=== PATIENT | female | born 1975 | race Caucasian/White ===

== ENCOUNTER 2020-09-09 16:47 | Emergency (ER) | payer OTHER | END 2020-09-09 20:12 | disposition home or self-care (01) | LOC: ED 16:47 | DX: S06.0X9A Concussion with loss of consciousness of unspecified duration, initial encounter (principal); G43.909 Migraine, unspecified, not intractable, without status migrainosus; V80.010A Animal-rider injured by fall from or being thrown from horse in noncollision accident, initial encounter | CPT/HCPCS: 70450; 96374; 96375; 99284-25; J0780; J1200; J1885; J7030 ==

== ENCOUNTER 2021-05-13 20:36 | Emergency (ER) | payer OTHER ==
[~2021-05-13] VITALS: Ht 165.1 cm; Wt 72.6 kg
[2021-05-13] MEDS ORDERED: CEPHALEXIN500 M1 PO (22:40)
== END 2021-05-13 22:57 | disposition home or self-care (01) ==
LOC: ED 20:36
PROC: 0HQGXZZ Repair Left Hand Skin, External Approach (ICD-10-PCS; principal; 2021-05-13)
DX: S61.211A Laceration without foreign body of left index finger without damage to nail, initial encounter (principal); S61.412A Laceration without foreign body of left hand, initial encounter; W26.8XXA Contact with other sharp object(s), not elsewhere classified, initial encounter
CPT/HCPCS: 12002; 90471; 90714; 99282-25